=== PATIENT | male | born 1995 | race Caucasian/White ===

== ENCOUNTER 2017-01-13 17:59 | Emergency (ER) | payer OTHER ==
[2017-01-13 18:07] VITALS: RESP 16
--- NOTE | 2017-01-13 18:21 | EDPHY ---
H & P Stated Complaint: abd pain lower blood in stool Source: Patient, Family - Personal History Current Tetanus/Diphtheria Vaccine: Yes Current Tetanus Diphtheria and Acellular Pertussis (TDAP): Yes Tetanus Vaccine Date: 2006 - Medical/Surgical History Hx Asthma: No Hx Chronic Respiratory Disease: No Hx Diabetes: No Hx Cardiac Disease: No Hx Renal Disease: No Hx Cirrhosis: No Hx Alcoholism: No Hx HIV/AIDS: No Hx Splenectomy or Spleen Trauma: No Other PMH: wisdom teeth removed - Social History Smoking Status: Never smoked Time Seen by Provider: 01/13/17 18:10 HPI/ROS: CHIEF COMPLAINT: Abdominal pain with blood in stool HISTORY OF PRESENT ILLNESS: This is a 21-year-old male presenting to the emergency department complaining of lower abdominal pain with blood in his stool. Patient states initial symptoms of lower abdominal pain started at 1830 yesterday had some nausea unable to have a bowel move, patient states he then went to lay down and got up and did have a hard stool around 1930 with blood in diarrhea afterwards. Since then he has had intermittent diarrhea with blood, denies any nausea or vomiting today no fever, no changes in appetite. No other complaints REVIEW OF SYSTEMS: Constitutional: No fever, no chills. Eyes: No blurred vision ENT: No sore throat. Cardiovascular: No chest pain, no palpitations. Respiratory: No cough, no shortness of breath. Gastrointestinal: Lower abdominal pain, no vomiting, nausea, diarrhea with blood Genitourinary: No hematuria. Musculoskeletal: No back pain. Skin: No rashes. Neurological: No headache. (Christine Rodriguez) - Physical Exam Exam: General Appearance: Alert, no distress. Eyes: Pupils equal and round no pallor or injection. ENT, Mouth: Mucous membranes moist. Respiratory: There are no retractions, lungs are clear to auscultation. Cardiovascular: Regular rate and rhythm. Gastrointestinal: Abdomen is soft nondistended, bilateral lower quadrant tenderness illness on palpation no rebound tenderness on right lower quadrant no masses, bowel sounds normal. Neurological: No focal deficits. Ambulatory without gait disturbance Skin: Warm and dry, no rashes. Musculoskeletal: Neck is supple nontender. Extremities: symmetrical, full range of motion. Psychiatric: Patient is oriented X 3, there is no agitation. (Christine Rodriguez) Constitutional: Initial Vital Signs Temperature (C) 36.9 C 01/13/17 18:06 Heart Rate 87 01/13/17 18:06 Respiratory Rate 16 01/13/17 18:06 Blood Pressure 143/81 H 01/13/17 18:06 O2 Sat (%) 98 01/13/17 18:06 O2 Delivery Mode Room Air Allergies/Adverse Reactions: No Known Allergies Allergy (Unverified 04/25/10 12:08) Home Medications: Medication Instructions Recorded NK [No Known Home Meds] 04/03/15 Medical Decision Making ED Course/Re-evaluation: Discussed the plan of care: CBC, CMP, stool occult blood which was positive, CT abdominal pelvis 2144: Spoke with Dr. Diane with GI consult for patient's colitis. Recommend treat as an infectious gastroenteritis 2204: Discussed all findings with patient, discharge home---> stable, discussed discharge instructions with patient (Christine Rodriguez) Differential Diagnosis: Other differential diagnosis considered but not limited to small bowel obstruction, perforated bowel and diverticulitis (Christine Rodriguez) Other Provider: This patient was evaluated and managed by the nurse practitioner. I have reviewed the chart and agree with the findings and plan of care as documented. ( Migdalia Hagen) - Data Points Laboratory Results: Laboratory Results 01/13/17 18:50 01/13/17 18:50 Medications Given: Discontinued Medications Morphine Sulfate (Morphine) 2 mg IVP EDNOW ONE Stop: 01/13/17 19:27 Last Admin: 01/13/17 19:47 Dose: 2 mg Ondansetron HCl (Zofran) 4 mg IVP EDNOW ONE Stop: 01/13/17 19:27 Last Admin: 01/13/17 19:47 Dose: 4 mg Departure - Departure Disposition: Home, Routine, Self-Care Clinical Impression: Gastroenteritis presumed infectious Condition: Good Instructions: Dehydration (ED), Gastroenteritis (ED), Colitis (ED) Additional Instructions: Discussed discharge instructions with patient 1. Increase fluid intake. I would not recommend any Gatorade as this can increase diarrhea, but if you feel the need to drink Gatorade diluted with 50% water. Bananas apples toast bland diet 2. You can take [id number] Imodium as needed to help decrease diarrhea 3. If any symptoms worsen such as increasing fever increase in bloody diarrhea increase in abdominal pain unable to tolerate p.o. intake return to the emergency department 4. I would recommend following up with primary care physician [facility] [phone] Referrals: NONE *PRIMARY CARE P,. [Primary Care Provider] - As per Instructions [facility]] - As per Instructions Deven Diane MD, FACG [Medical Doctor] - As per Instructions Stand Alone Forms: Work Excuse
[2017-01-13 18:58] LABS: % IMMATURE GRANULYOCYTES 0.4 % (0.0-1.1); ABSOLUTE IMMATURE GRANULOCYTES 0.05 10^3/uL (0.00-0.10); ADD DIFF? NO; ADD MORPH? NO; ADD SCAN? NO; ATYPICAL LYMPHOCYTE FLAG 10 (0-99); FRAGMENT RBC FLAG 0 (0-99); HEMATOCRIT 44.5 % (40.0-51.0); HEMOGLOBIN 15.6 g/dL (13.7-17.5); LEFT SHIFT FLG 0 (0-99); LIPEMIA HEMOLYSIS FLAG 90 (0-99); MEAN CELL HEMOGLOBIN 30.7 pg (27.9-34.1); MEAN CELL HEMOGLOBIN CONCENTR. 35.1 g/dL (32.4-36.7); MEAN CELL VOLUME 87.6 fL (81.5-99.8); PLATELET CLUMPS FLAG 0 (0-99); PLATELET COUNT 219 10^3/uL (150-400); RED BLOOD CELL COUNT 5.08 10^6/uL (4.40-6.38); RED CELL DISTRIBUTION WIDTH 12.8 % (11.5-15.2)
[2017-01-13 19:15] LABS: BILIRUBIN,TOTAL 1.1 mg/dL (0.1-1.4); BILIRUBIN-CONJUGATED 0.3 mg/dL (0.0-0.5); BILIRUBIN-UNCONJUGATED 0.8 mg/dL (0.0-1.1)
[2017-01-13] MEDS ORDERED: ONDANSETRON 4 MG/2 ML VIAL IVP ONE (19:26)
[2017-01-13] MEDS ORDERED: IOPAMIDOL (ISOVUE-300) 100 ML BTL ONE (19:39)
[2017-01-13 19:43] LABS: ANION GAP 13 mEq/L (8-16); CALCIUM 10.1 mg/dL (8.5-10.4); CARBON DIOXIDE 24 mEq/l (22-31); CHLORIDE 103 mEq/L (97-110); CREATININE 0.8 mg/dL (0.7-1.3); GLOMERULAR FILTRATION RATE > 60; GLUCOSE 92 mg/dL (70-100); SODIUM 140 mEq/L (134-144)
[2017-01-13 20:47] VITALS: O2SAT 95
[2017-01-13 22:27] VITALS: BP 109/64; PULSE 71; TEMP 97.7
== END 2017-01-13 22:27 | disposition home or self-care (01) ==
DX: R10.30 Lower abdominal pain, unspecified (principal)
CPT/HCPCS: 96374; J2405; Q9967

== ENCOUNTER 2017-06-01 19:49 | Emergency (ER) | payer OTHER ==
[2017-06-01 19:54] VITALS: TEMP 98.6; O2SAT 95
[2017-06-01] MEDS ORDERED: IBUPROFEN 600 MG TAB PO ONE (20:50)
[2017-06-01] MEDS ORDERED: CYCLOBENZAPRINE 10 MG TAB PO ONE (20:50)
--- NOTE | 2017-06-01 20:55 | EDPHY ---
H & P Stated Complaint: flu-like symptoms Time Seen by Provider: 06/01/17 20:52 HPI/ROS: HPI: This is a 20-year-old male who presents with Chief Complaint: Flu-like symptoms Location: Body Quality: Aches Duration: 1-2 days Signs and Symptoms: No fever, no chills, + fatigue, + body aches, + dry cough, no diarrhea, no abdominal pain, no neck stiffness, no headache, no runny nose, no nasal congestion, no sore throat Timing: Rapid onset Severity: Moderate Context: Patient is a local college student who presents with generalized body aches, fatigue, dry cough over the last 1-2 days. He believes that he has flu. He is able to eat and drink normally. Modifying Factors: Tylenol taken earlier this afternoon with transient relief Comment: ROS: see HPI Constitutional: No fever, no chills, no weight loss Eyes: No blurred vision Respiratory: No shortness of breath, no cough Cardiovascular: No chest pain Gastrointestinal: No nausea, no vomiting, no diarrhea Genitourinary: No dysuria Extremities: No myalgias Neurologic: No weakness, no numbness Skin: No rashes Hematologic: No bruising, no bleeding MEDICAL/SURGICAL/SOCIAL HISTORY: Medical history: Generally healthy Surgical history: Denies Social history: See HPI CONSTITUTIONAL: young adult male well-appearing, awake and alert, no obvious distress HEENT: Atraumatic and normocephalic, PERRL, EOMI. Tympanic membranes clear. Oropharynx clear, no exudate and moist pink mucosa. Airway patent. No lymphadenopathy. No meningismus. Cardiovascular: Normal S1/S2, regular rate, regular rhythm, without murmur rub or gallop. PULMONARY/CHEST: Symmetrical and nontender. Clear to auscultation bilaterally. Good air movement. No accessory muscle usage. ABDOMEN: Soft, nondistended, nontender, no rebound, no guarding, no peritoneal signs, no masses or organomegaly. No CVAT. EXTREMITIES: 2/2 pulses, no deformities, no clubbing, no cyanosis or edema. NEUROLOGICAL: no focal neuro deficits. GCS 15. SKIN: Warm and dry, no erythema. no rash. Good capillary refill. Source: Patient Exam Limitations: No limitations - Personal History Current Tetanus/Diphtheria Vaccine: Unsure Current Tetanus Diphtheria and Acellular Pertussis (TDAP): Unsure Tetanus Vaccine Date: 2006 - Medical/Surgical History Hx Asthma: No Hx Chronic Respiratory Disease: No Hx Diabetes: No Hx Cardiac Disease: No Hx Renal Disease: No Hx Cirrhosis: No Hx Alcoholism: No Hx HIV/AIDS: No Hx Splenectomy or Spleen Trauma: No Other PMH: wisdom teeth removed. wrist sx - Social History Smoking Status: Never smoked Constitutional: Initial Vital Signs Temperature (C) 37.0 C 06/01/17 19:51 Heart Rate 100 06/01/17 19:51 Respiratory Rate 18 06/01/17 19:51 Blood Pressure 124/76 H 06/01/17 19:51 O2 Sat (%) 95 06/01/17 19:51 O2 Delivery Mode Room Air Allergies/Adverse Reactions: No Known Allergies Allergy (Verified 06/01/17 19:53) Home Medications: Medication Instructions Recorded NK [No Known Home Meds] 04/03/15 Medical Decision Making ED Course/Re-evaluation: Afebrile and no systemic signs. Influenza and oral medication ordered. Given ibuprofen and Flexeril with adequate relief No signs of otitis media/sinusitis/hypoxia/meningitis/encephalopathy leukocytosis noted mono and influenza negative suspect viral syndrome. no signs of dehydration reassessed patient at 2230: Patient states that he feels better and asking to be discharged home. Differential Diagnosis: Differential diagnosis includes but is not limited to influenza, viral syndrome , gastroenteritis, meningitis, strep pharyngitis, upper respiratory infection. - Data Points Laboratory Results: Laboratory Results 06/01/17 22:03 06/01/17 22:03 06/01/17 06/01/17 06/01/17 22:03 22:03 22:03 WBC 16.86 10^3/uL H 10^3/uL (3.80-9.50) RBC 5.08 10^6/uL 10^6/uL (4.40-6.38) Hgb 15.3 g/dL g/dL (13.7-17.5) Hct 44.0 % % (40.0-51.0) MCV 86.6 fL fL (81.5-99.8) MCH 30.1 pg pg (27.9-34.1) MCHC 34.8 g/dL g/dL (32.4-36.7) RDW 12.0 % % (11.5-15.2) Plt Count 202 10^3/uL 10^3/uL (150-400) MPV 9.4 fL fL (8.7-11.7) Neut % (Auto) 79.6 % H % (39.3-74.2) Lymph % (Auto) 12.6 % L % (15.0-45.0) Weston % (Auto) 6.3 % % (4.5-13.0) Eos % (Auto) 0.8 % % (0.6-7.6) Baso % (Auto) 0.4 % % (0.3-1.7) Nucleat RBC Rel Count 0.0 % % (0.0-0.2) Absolute Neuts (auto) 13.42 10^3/uL H 10^3/uL (1.70-6.50) Absolute Lymphs (auto) 2.13 10^3/uL 10^3/uL (1.00-3.00) Absolute Monos (auto) 1.07 10^3/uL H 10^3/uL (0.30-0.80) Absolute Eos (auto) 0.13 10^3/uL 10^3/uL (0.03-0.40) Absolute Basos (auto) 0.06 10^3/uL 10^3/uL (0.02-0.10) Absolute Nucleated RBC 0.00 10^3/uL 10^3/uL (0-0.01) Immature Gran % 0.3 % % (0.0-1.1) Immature Gran # 0.05 10^3/uL 10^3/uL (0.00-0.10) Sodium 138 mEq/L mEq/L (134-144) Potassium 3.9 mEq/L mEq/L (3.5-5.2) Chloride 104 mEq/L mEq/L (97-110) Carbon Dioxide 20 mEq/l L mEq/l (22-31) Anion Gap 14 mEq/L mEq/L (8-16) BUN 9 mg/dL mg/dL (7-23) Creatinine 0.9 mg/dL mg/dL (0.7-1.3) Estimated GFR > 60 Glucose 87 mg/dL mg/dL (70-100) Calcium 9.7 mg/dL mg/dL (8.5-10.4) Urine Color Urine Appearance Urine pH Ur Specific Glenn Urine Protein Urine Ketones Urine Blood Urine Nitrate Urine Bilirubin Urine Urobilinogen Ur Leukocyte Esterase Urine Glucose Nasal Influenza A PCR Nasal Influenza B PCR Monoscreen NEGATIVE (NEGATIVE) Influenza A & B (PCR) 06/01/17 06/01/17 06/01/17 21:50 20:30 20:30 WBC RBC Hgb Hct MCV MCH MCHC RDW Plt Count MPV Neut % (Auto) Lymph % (Auto) Weston % (Auto) Eos % (Auto) Baso % (Auto) Nucleat RBC Rel Count Absolute Neuts (auto) Absolute Lymphs (auto) Absolute Monos (auto) Absolute Eos (auto) Absolute Basos (auto) Absolute Nucleated RBC Immature Gran % Immature Gran # Sodium Potassium Chloride Carbon Dioxide Anion Gap BUN Creatinine Estimated GFR Glucose Calcium Urine Color COLORLESS Urine Appearance CLEAR Urine pH 7.0 (5.0-7.5) Ur Specific Glenn 1.001 L (1.002-1.030) Urine Protein NEGATIVE (NEGATIVE) Urine Ketones NEGATIVE (NEGATIVE) Urine Blood NEGATIVE (NEGATIVE) Urine Nitrate NEGATIVE (NEGATIVE) Urine Bilirubin NEGATIVE (NEGATIVE) Urine Urobilinogen NEGATIVE EU EU (0.2-1.0) Ur Leukocyte Esterase NEGATIVE (NEGATIVE) Urine Glucose NEGATIVE (NEGATIVE) Nasal Influenza A PCR NEGATIVE FOR FLU A (NEGATIVE) Nasal Influenza B PCR NEGATIVE FOR FLU B (NEGATIVE) Monoscreen Influenza A & B (PCR) Cancelled Medications Given: Discontinued Medications Cyclobenzaprine HCl (Flexeril) 10 mg PO EDNOW ONE Stop: 06/01/17 20:51 Last Admin: 06/01/17 21:03 Dose: 10 mg Ibuprofen (Motrin) 600 mg PO EDNOW ONE Stop: 06/01/17 20:51 Last Admin: 06/01/17 21:03 Dose: 600 mg Departure - Departure Disposition: Home, Routine, Self-Care Clinical Impression: Viral syndrome Condition: Good Instructions: Viral Syndrome (ED) Additional Instructions: Please rest as much as possible over the next few days. Drink plenty of fluids. Take Ibuprofen and Tylenol as needed for pain, fever, headache. Referrals: [facility] [[facility]] - As per Instructions Stand Alone Forms: Work Excuse
[2017-06-01] MEDS ORDERED: NS 1,000 ML IV ONE (21:51)
[2017-06-01 22:09] LABS: COLOR COLORLESS; LEUKOCYTE ESTERASE,URINE NEGATIVE (NEGATIVE); NITRITE,URINE NEGATIVE (NEGATIVE)
[2017-06-01 22:23] LABS: % IMMATURE GRANULYOCYTES 0.3 % (0.0-1.1); ABSOLUTE IMMATURE GRANULOCYTES 0.05 10^3/uL (0.00-0.10); ADD DIFF? NO; ADD MORPH? NO; ADD SCAN? NO; ATYPICAL LYMPHOCYTE FLAG 20 (0-99); FRAGMENT RBC FLAG 0 (0-99); HEMOGLOBIN 15.3 g/dL (13.7-17.5); LEFT SHIFT FLG 0 (0-99); LIPEMIA HEMOLYSIS FLAG 90 (0-99); MEAN CELL HEMOGLOBIN 30.1 pg (27.9-34.1); MEAN CELL HEMOGLOBIN CONCENTR. 34.8 g/dL (32.4-36.7); MEAN CELL VOLUME 86.6 fL (81.5-99.8); MEAN PLATELET VOLUME 9.4 fL (8.7-11.7); PLATELET CLUMPS FLAG 0 (0-99); PLATELET COUNT 202 10^3/uL (150-400); RED BLOOD CELL COUNT 5.08 10^6/uL (4.40-6.38)
[2017-06-01 22:31] LABS: ANION GAP 14 mEq/L (8-16); CALCIUM 9.7 mg/dL (8.5-10.4); CARBON DIOXIDE 20 mEq/l (22-31); CHLORIDE 104 mEq/L (97-110); CREATININE 0.9 mg/dL (0.7-1.3); GLOMERULAR FILTRATION RATE > 60; GLUCOSE 87 mg/dL (70-100); POTASSIUM 3.9 mEq/L (3.5-5.2); SODIUM 138 mEq/L (134-144)
[2017-06-01 23:13] VITALS: BP 121/79; PULSE 89; RESP 16
== END 2017-06-01 23:11 | disposition home or self-care (01) ==
DX: B34.9 Viral infection, unspecified (principal)